=== PATIENT | male | born 1975 | race Caucasian/White ===

== ENCOUNTER 2016-12-22 14:33 | Emergency (ER) | payer MEDICARE, OTHER ==
[2016-12-22 18:15] LABS: RED BLOOD COUNT 4.91 M/UL (4.20-5.50)
[2016-12-22 18:35] LABS: BUN/CREATININE RATIO 18 (0-10)
== END 2016-12-22 22:10 | disposition home or self-care (01) ==
LOC: ER1 14:33
PROVIDERS: Physician Assistant Medical
DX: E11.65 Type 2 diabetes mellitus with hyperglycemia (principal); R94.5 Abnormal results of liver function studies; Z88.5 Allergy status to narcotic agent; Z79.4 Long term (current) use of insulin; Z79.84 Long term (current) use of oral hypoglycemic drugs
CPT/HCPCS: 36415; 80053; 80074; 80307; 81001; 82009; 82150; 83690; 85025; 96360; 99285; J7030; J7050; Q9962

== ENCOUNTER → 2017-03-24 | Outpatient (CLI) | payer MEDICARE | LOC: KOH-I 03-15 11:30 | DX: M84.372A Stress fracture, left ankle, initial encounter for fracture (principal) | CPT/HCPCS: 73700 ==

== ENCOUNTER 2017-06-12 13:44 | Emergency (ER) | payer OTHER, MEDICARE | END 2017-06-12 14:40 | disposition home or self-care (01) | LOC: ER1 13:44 | DX: E11.649 Type 2 diabetes mellitus with hypoglycemia without coma (principal); Z88.5 Allergy status to narcotic agent; Z87.19 Personal history of other diseases of the digestive system; Z79.4 Long term (current) use of insulin | CPT/HCPCS: 82962; 99285 ==

== ENCOUNTER → 2021-07-20 | Outpatient (CLI) | payer OTHER ==
[~2021-07-20] MED LIST: IBU800 MG PO
== END ==
LOC: KOH-I 16:08
DX: M25.571 Pain in right ankle and joints of right foot (principal); M79.671 Pain in right foot
CPT/HCPCS: 73610; 73630